=== PATIENT | male | born 1990 | race Caucasian/White ===

== ENCOUNTER 2021-07-17 12:26 | Outpatient (CLI) | payer BC | END 2021-07-17 12:27 | disposition home or self-care (01) | LOC: CSHCT 12:26 | PROVIDERS: ATTEND Internal Medicine | DX: K85.90 Acute pancreatitis without necrosis or infection, unspecified (principal); R10.13 Epigastric pain; R11.0 Nausea; R12 Heartburn; K82.0 Obstruction of gallbladder; K86.89 Other specified diseases of pancreas | CPT/HCPCS: 74178 ==

== ENCOUNTER 2021-08-18 09:32 | Outpatient (CLI) | payer BC | END 2021-08-18 09:33 | disposition home or self-care (01) | LOC: CSHCT 09:32 | PROVIDERS: ATTEND Internal Medicine | DX: K85.90 Acute pancreatitis without necrosis or infection, unspecified (principal); K86.3 Pseudocyst of pancreas; K83.8 Other specified diseases of biliary tract | CPT/HCPCS: 74177 ==